=== PATIENT | male | born 1990 | race Asian ===

== ENCOUNTER 2017-11-18 23:15 | Emergency (ER) | payer MEDICAID ==
[2017-11-18 23:33] VITALS: Ht 170.2 cm
[2017-11-19 01:06] LABS: RED CELL DISTRIBUTION WIDTH 13.6 % (11.5-14.5)
[2017-11-19 01:10] LABS: PLATELET COUNT 294 x10^3mcL (130-400)
[2017-11-19 01:11] LABS: BASOPHIL % 5.3 % (0-2)
[2017-11-19 01:59] LABS: TRIGLYCERIDES 6771 mg/dL (<150)
[2017-11-19 02:46] LABS: UA SPECIFIC GRAVITY 1.025 (1.005-1.035); microscopic required? YES; urine erythrocyte 1+ (NEGATIVE)
[2017-11-19 02:56] LABS: AMPHETAMINE QUAL UR NONE DETECTED (See below)
[2017-11-19 05:22] VITALS: BP 135/76
== END 2017-11-19 05:22 | disposition short-term general hospital (02) ==
LOC: ED 23:15
PROVIDERS: Emergency Medicine
DX: E78.1 Pure hyperglyceridemia (principal); R73.9 Hyperglycemia, unspecified
CPT/HCPCS: 36600; 82962; 83880; 84439; G0480; J0153; J0282; J1885; J2250; J2405; J2543; J3010; J3475; J3490; J7030; J7120; Q0092